=== PATIENT | male | born 1995 | race Caucasian/White ===

== ENCOUNTER 2024-02-20 15:03 | Day surgery (SDC) | payer OTHER ==
[2024-02-17 16:02] VITALS: BMI 25.7
[2024-02-20] MEDS ORDERED: MIDAZOLAM HCL 2 MG/2 ML SINGLE DOSE VIAL ONE (16:17)
[2024-02-20] MEDS ORDERED: ROPIVACAINE HCL/PF 100 MG/20 ML VIAL ONE (16:52)
[2024-02-20] MEDS ORDERED: ONDANSETRON 4 MG/2 ML VIAL ONE (17:09)
[2024-02-20] MEDS ORDERED: HYDROmorphone HCL/PF 1 MG/ML VIAL ONE ×2 (17:09→17:33)
[2024-02-20] MEDS ORDERED: ceFAZolin SODIUM 1 GM VIAL ONE (17:09)
[2024-02-20] MEDS ORDERED: KETOROLAC TROMETHAMINE 30 MG/1 ML VIAL ONE (17:09)
[2024-02-20] MEDS ORDERED: PROPOFOL 20 ML ONE (17:09)
[2024-02-20] MEDS ORDERED: LIDOCAINE HCL/PF 2% SDV 5ML VIAL ONE (17:09)
[2024-02-20] MEDS ORDERED: DEXAMETHASONE SOD PHOSPHATE 4 MG/1 ML VIAL ONE (17:09)
[2024-02-20] MEDS ORDERED: SEVOFLURANE 250 ML BTL ONE (17:13)
[2024-02-20] MEDS ORDERED: VANCOMYCIN 1,000 MG VIAL (RESTRICTED TO ID ONLY) ONE (17:41)
[2024-02-20] MEDS ORDERED: TRANEXAMIC ACID 1000 MG/10 ML VIAL ONE (17:41)
[2024-02-20] MEDS ORDERED: oxyCODONE HCL 5 MG TABLET PO PRN ×2 (19:23)
[2024-02-20] MEDS ORDERED: ONDANSETRON 4 MG/2 ML VIAL IVPUSH PRN (19:23)
[2024-02-20] MEDS ORDERED: ACETAMINOPHEN INJECTION 100 ML IVPB ONE (19:23)
[2024-02-20] MEDS ORDERED: LACTATED RINGERS SOLUTION 1,000 ML IV SCH (19:30)
[2024-02-20] MEDS: ACETAMINOPHEN 1000 MG/100 ML BAG IVPB ONE (19:30)
[2024-02-20 19:45] VITALS: RESP 16
[2024-02-21 00:03] VITALS: BP 118/72; PULSE 64; TEMP 98
[2024-02-21] MEDS ORDERED: ACETAMINOPHEN 500 MG TABLET (FP) PO SCH (01:30)
== END 2024-02-20 21:00 | disposition home or self-care (01) ==
LOC: FASU 15:03
PROVIDERS: ATTEND Orthopaedic Surgery Sports Medicine
PROC: 0MRN47Z Replacement of Right Knee Bursa and Ligament with Autologous Tissue Substitute, Percutaneous Endoscopic Approach (ICD-10-PCS; principal; 2024-02-20 17:35)
PROC: 0SQC4ZZ Repair Right Knee Joint, Percutaneous Endoscopic Approach (ICD-10-PCS; 2024-02-20 17:35)
DX: S83.511A Sprain of anterior cruciate ligament of right knee, initial encounter (principal); S83.241A Other tear of medial meniscus, current injury, right knee, initial encounter; X58.XXXA Exposure to other specified factors, initial encounter; Y93.9 Activity, unspecified; Y92.9 Unspecified place or not applicable
CPT/HCPCS: 29882; 29888; C1713; 94760; C1768; J0131